=== PATIENT | male | born 1950 | race Caucasian/White ===

== ENCOUNTER 2016-08-17 16:58 | Inpatient (IN) ==
[2016-08-17] MEDS ORDERED: Ondansetron 4 MG/2 ML VIAL IVP ONE (17:22)
[2016-08-17] MEDS ORDERED: *HR* Morphine 2 MG/ML SYRINGE IVP ONE (17:22)
[2016-08-17] MEDS ORDERED: 0.9 % Sodium Chloride 1,000 ML IVC ONE (17:23)
--- NOTE | 2016-08-17 17:26 | Emergency Department Note ---
Disposition Clinical Impression: Pneumonia Qualifiers: Pneumonia type: due to unspecified organism Laterality: left Lung location: lower lobe of lung Qualified Code(s): J18.1 - Lobar pneumonia, unspecified organism Disposition: Admitted As Inpatient Condition: Good Referrals: Dolores Laureano MD [Primary Care Provider] - Forms: Work/School Release, ED Satisfaction Letter Time of Disposition: 20:08 Abdominal Pain HPI - General Chief Complaint: ED Abdominal Pain Stated Complaint: abdominal pain sent from for CT scan Time Seen by Provider: 08/17/16 17:20 Source: patient, other Mode of arrival: ambulatory Limitations: altered mental status (Developmentally delayed) Nursing Notes Reviewed: Yes Vital Signs Reviewed: Yes - History of Present Illness Pt Subjective Complaint: abdominal pain Onset (ago): day(s) (1) Consistency: constant Location: periumbilical Pain Severity: severe Pain Scale: 8 Quality: cramping Radiation: none Migration to: no migration Improves with: nothing Worsens with: nothing Associated symptoms: Reports: nausea, vomiting (Multiple episodes of vomiting) Treatments prior to arrival: none - Related Data Home Medications Medication Instructions Recorded Confirmed Aspirin [Lo-Dose Aspirin EC] 81 mg PO DAILY 08/17/16 08/17/16 Bismuth Subsalicylate 262 mg PO AD 08/17/16 08/17/16 [Pepto-Bismol] Buspirone HCl [Buspar] 15 mg PO TID 08/17/16 08/17/16 Calcium Carbonate/Vitamin D3 1 each PO DAILY 08/17/16 08/17/16 [Oyster Shell Calcium-Vit D Tab] CarBAMazepine [Tegretol] 200 mg PO TID 08/17/16 08/17/16 Diazepam [Valium] 5 mg PO ONCE 08/17/16 08/17/16 Docusate Sodium [Stool Softener] 250 mg PO HS 08/17/16 08/17/16 Finasteride [Proscar] 5 mg PO DAILY 08/17/16 08/17/16 Lisinopril [Zestril] 10 mg PO DAILY 08/17/16 08/17/16 Niacin [Niacor] 500 mg PO BID 08/17/16 08/17/16 Omeprazole 20 mg PO DAILY 08/17/16 08/17/16 Tamsulosin HCl [Flomax] 0.4 mg PO DAILY 08/17/16 08/17/16 Allergies Allergy/AdvReac Type Severity Reaction Status Date / Time No Known Allergies Allergy Verified 08/17/16 15:55 All systems ED: reviewed and negative except as stated. Constitutional: Reports: fever, chills Eyes: Denies: eye discharge ENT ED: Denies: ear pain, throat pain Cardiovascular: Denies: chest pain Respiratory: Denies: cough, dyspnea Gastrointestinal: Reports: abdominal pain, nausea, vomiting. Denies: diarrhea Genitourinary: Denies: urgency, dysuria, frequency Abdominal Pain PMH - Past Medical History Medical history: Reports: non-contributory Male Surgical History: Reports: no surgical history - Social History Smoking status: Never smoker Alcohol use: Reports: none Drug use: Reports: none Physical Exam - General Limitations: other (Developmentally delayed) General appearance: alert, in no apparent distress - Head Head exam: atraumatic, normocephalic - Eye Eye exam: Present: PERRL, EOMI. Absent: scleral icterus, conjunctival injection - ENT ENT exam: normal oropharynx, mucous membranes dry, TM's normal bilaterally - Neck Neck exam: Present: normal inspection, full ROM, trachea midline. Absent: lymphadenopathy - Chest Chest inspection: Present: normal inspection, symmetric chest wall rise - Respiratory Respiratory exam: Present: normal lung sounds bilaterally. Absent: respiratory distress, wheezes - Cardiovascular Cardiovascular exam: Present: tachycardia, normal heart sounds. Absent: systolic murmur, diastolic murmur, rubs, gallop - Abdominal Exam Abdominal exam: Present: soft, tenderness, distention, guarding (Mild), hyperactive bowel sounds. Absent: rebound, organomegaly, mass Abdominal tenderness: Present: diffuse - Male exam: Present: normal testicular lie. Absent: inguinal hernia, inguinal lymphadenopathy, testicular tenderness - Extremities Exam Extremities exam: Present: normal inspection, full ROM, normal capillary refill. Absent: tenderness - Neurological Exam Neurological exam: Present: alert, normal gait. Absent: motor sensory deficit - Psychiatric Psychiatric exam: Present: normal affect, normal mood - Skin Skin exam: Present: warm, dry, intact Course - Reevaluation(s) Reevaluation #1: The patient presents with vomiting. He does not have a definite bowel obstruction. He is an infiltrate in his left lower lobe with elevated white blood cell count. I suspect he has pneumonia. We will cover him for a community-acquired pneumonia with Rocephin and azithromycin. He has had no vomiting in the 3 hours at least been here. I spoke with Dr. Gonzalez. He is agreeable with admitting the patient to a Medr bed on IV fluids and clear liquids. Time: 20:07 Vital Signs Temperature 99.8 F H 08/17/16 17:06 Pulse Rate 102 08/17/16 17:06 Respiratory Rate 14 08/17/16 17:06 Blood Pressure 132/83 08/17/16 17:06 O2 Sat by Pulse Oximetry 97 08/17/16 17:06 Temperature 99.8 F H 08/17/16 18:59 Pulse Rate 80 08/17/16 18:59 Respiratory Rate 16 08/17/16 18:59 Blood Pressure 135/79 08/17/16 18:59 O2 Sat by Pulse Oximetry 96 08/17/16 18:59 Oxygen Delivery Oxygen Delivery Room Air Abdominal Pain - MDM Narrative Medical decision making narrative: Differential includes but is not limited to diverticulitis, perforated viscus, small bowel obstruction, appendicitis, perforated appendicitis, urinary tract infection. - Lab Data Result diagrams: 08/17/16 17:30 08/17/16 17:30 Lab Results 08/17/16 08/17/16 08/17/16 Range/Units 17:30 17:30 17:30 WBC 15.8 H (4.3-11.1) K/mcL RBC 5.48 (4.19-5.50) M/mcL Hgb 17.2 H (12.9-16.9) g/dL Hct 47.7 (37.5-50.1) % MCV 87.0 (83.0-100.0) fL MCH 31.4 (28.0-33.3) pg MCHC 36.1 H (31.6-35.5) g/dL RDW 14.2 (11.5-14.5) % Plt Count 172 (140-400) K/mcL MPV 9.4 (9.4-12.4) fL Immature Gran % 0.4 (0-4) % Seg Neutrophils % 90.1 % Lymphocytes % 3.9 % Monocytes % 5.4 % Eosinophils % 0.0 % Basophils % 0.2 % Neutrophils # 14.2 H (1.6-8.9) K/mcL Lymphocytes # 0.6 (0.6-4.6) K/mcL Monocytes # 0.9 (0.0-1.3) K/mcL Eosinophils # 0.0 (0.0-0.6) K/mcL Basophils # 0.0 (0.0-0.2) K/mcL Sodium 139 (136-145) mEq/L Potassium 3.7 (3.5-4.5) mEq/L Chloride 104 (98-109) mEq/L Carbon Dioxide 21 (19-29) mEq/L BUN 21 (8-26) mg/dL Creatinine 1.01 (0.72-1.25) mg/dL Est GFR ( Amer) > 60 (> 60) Est GFR (Non-Af Amer) > 60 (> 60) BUN/Creatinine Ratio 21 (6-26) Glucose 132 H (70-99) mg/dL Calculated Osmolality 293 (280-300) Calcium 8.9 (8.6-10.8) mg/dL Total Bilirubin 0.4 (0.2-1.2) mg/dL AST 20 (5-34) Units/L ALT 20 (0-55) Units/L Alkaline Phosphatase 64 (38-126) Units/L Serum Total Protein 7.6 (6.0-8.3) g/dL Albumin 4.4 (3.5-5.0) g/dL Globulin 3.2 (2.4-3.5) g/dL Albumin/Globulin Ratio 1.4 (1.1-2.2) Lipase 10 (8-78) Units/L Urine Color (Yellow) Urine Clarity (Clear) Urine pH (5.0-8.0) pH Units Ur Specific [place] (1.010-1.025) Urine Protein (Neg-Trace) mg/dL Urine Glucose (UA) (Normal) mg/dL Urine Ketones (Negative) mg/dL Urine Blood (Negative) Urine Nitrite (Negative) Urine Bilirubin (Negative) Urine Urobilinogen (Normal) mg/dL Ur Leukocyte Esterase (Negative) Urine Microscopic RBC (0-3) per hpf Urine Microscopic WBC (0-3) per hpf Ur Squamous Epith Cells (None-Few) per lpf Hyaline Casts (None-Few) per lpf Urine Mucus (Few) Ur Culture Indicated? (NO) Carbamazepine 5.0 (4.0-12.0) mcg/mL 08/17/16 Range/Units 17:38 WBC (4.3-11.1) K/mcL RBC (4.19-5.50) M/mcL Hgb (12.9-16.9) g/dL Hct (37.5-50.1) % MCV (83.0-100.0) fL MCH (28.0-33.3) pg MCHC (31.6-35.5) g/dL RDW (11.5-14.5) % Plt Count (140-400) K/mcL MPV (9.4-12.4) fL Immature Gran % (0-4) % Seg Neutrophils % % Lymphocytes % % Monocytes % % Eosinophils % % Basophils % % Neutrophils # (1.6-8.9) K/mcL Lymphocytes # (0.6-4.6) K/mcL Monocytes # (0.0-1.3) K/mcL Eosinophils # (0.0-0.6) K/mcL Basophils # (0.0-0.2) K/mcL Sodium (136-145) mEq/L Potassium (3.5-4.5) mEq/L Chloride (98-109) mEq/L Carbon Dioxide (19-29) mEq/L BUN (8-26) mg/dL Creatinine (0.72-1.25) mg/dL Est GFR ( Amer) (> 60) Est GFR (Non-Af Amer) (> 60) BUN/Creatinine Ratio (6-26) Glucose (70-99) mg/dL Calculated Osmolality (280-300) Calcium (8.6-10.8) mg/dL Total Bilirubin (0.2-1.2) mg/dL AST (5-34) Units/L ALT (0-55) Units/L Alkaline Phosphatase (38-126) Units/L Serum Total Protein (6.0-8.3) g/dL Albumin (3.5-5.0) g/dL Globulin (2.4-3.5) g/dL Albumin/Globulin Ratio (1.1-2.2) Lipase (8-78) Units/L Urine Color Yellow (Yellow) Urine Clarity Slightly Cloudy A (Clear) Urine pH 6.0 (5.0-8.0) pH Units Ur Specific [place] >= 1.030 H (1.010-1.025) Urine Protein >=300 H (Neg-Trace) mg/dL Urine Glucose (UA) Normal (Normal) mg/dL Urine Ketones Trace H (Negative) mg/dL Urine Blood Trace-intact H (Negative) Urine Nitrite Negative (Negative) Urine Bilirubin Small H (Negative) Urine Urobilinogen Normal (Normal) mg/dL Ur Leukocyte Esterase Negative (Negative) Urine Microscopic RBC 0-3 (0-3) per hpf Urine Microscopic WBC 0-3 (0-3) per hpf Ur Squamous Epith Cells Few (None-Few) per lpf Hyaline Casts Few (None-Few) per lpf Urine Mucus Many H (Few) Ur Culture Indicated? NO (NO) Carbamazepine (4.0-12.0) mcg/mL
[2016-08-17] MEDS ORDERED: 0.9 % Sodium Chloride 1,000 ML IVC SCH ×3 (17:30→22:42)
[2016-08-17 17:41] LABS: Basophils % 0.2 %; Hematocrit 47.7 % (37.5-50.1); Hemoglobin 17.2 g/dL (12.9-16.9); Immature Granulocytes % 0.4 % (0-4); Lymphocytes # 0.6 K/mcL (0.6-4.6); Lymphocytes % 3.9 %; Mean Corpuscular HGB Conc 36.1 g/dL (31.6-35.5); Mean Corpuscular Hemoglobin 31.4 pg (28.0-33.3); Mean Platelet Volume 9.4 fL (9.4-12.4); Monocytes # 0.9 K/mcL (0.0-1.3); Monocytes % 5.4 %; Neutrophils # 14.2 K/mcL (1.6-8.9); Platelet Count 172 K/mcL (140-400); Red Blood Count 5.48 M/mcL (4.19-5.50); Red Cell Distribution Width 14.2 % (11.5-14.5); Segmented Neutrophils % 90.1 %
[2016-08-17 17:57] LABS: Bilirubin,Urine Small (Negative); Blood,Urine Trace-intact (Negative); Clarity,Urine Slightly Cloudy (Clear); Color,Urine Yellow (Yellow); Glucose,Urine (UA) Normal (Normal); Ketones,Urine Trace mg/dL (Negative); Leukocyte Esterase,Urine Negative (Negative); Nitrite,Urine Negative (Negative); Protein,Urine >=300 mg/dL (Neg-Trace); Specific Gravity,Urine >= 1.030 (1.010-1.025); Urobilinogen,Urine Normal (Normal)
[2016-08-17 18:00] LABS: Alanine Aminotransferase 20 Units/L (0-55); Albumin 4.4 g/dL (3.5-5.0); Albumin/Globulin Ratio 1.4 (1.1-2.2); Alkaline Phosphatase 64 Units/L (38-126); Aspartate Amino Transferase 20 Units/L (5-34); BUN/Creatinine Ratio 21 (6-26); Bilirubin,Total 0.4 mg/dL (0.2-1.2); Blood Urea Nitrogen 21 mg/dL (8-26); Calcium 8.9 mg/dL (8.6-10.8); Carbon Dioxide 21 mEq/L (19-29); Chloride 104 mEq/L (98-109); Globulin 3.2 g/dL (2.4-3.5); Glucose 132 mg/dL (70-99); Lipase 10 Units/L (8-78); Osmolality,Calculated 293 (280-300); Potassium 3.7 mEq/L (3.5-4.5); Sodium 139 mEq/L (136-145); Total Protein 7.6 g/dL (6.0-8.3); eGFR For African Americans > 60 (> 60); eGFR For Non-African Americans > 60 (> 60)
[2016-08-17 18:21] LABS: Mucus,Urine Many (Few); RBC,Urine 0-3 per hpf (0-3); Squamous Epithelial Cell,Urine Few per lpf (None-Few); WBC,Urine 0-3 per hpf (0-3)
[2016-08-17 18:22] LABS: Hyaline Casts,Urine Few per lpf (None-Few)
[2016-08-17] MEDS ORDERED: Azithromycin 500 MG in D5% in Water 250 ML IVPB ONE ×2 (21:04→22:42)
[2016-08-17] MEDS ORDERED: CefTRIAXone 1,000 MG in D5% in Water (Mini-Bag+) 100 ML IVPB ONE (21:04)
[2016-08-17] MEDS ORDERED: Naloxone 0.4 MG/ML INJ IVP PRN ×3 (22:42)
[2016-08-17] MEDS ORDERED: Ondansetron 4 MG/2 ML VIAL IVP PRN ×2 (22:42)
[2016-08-17] MEDS: Niacin (24 HR) 500 MG TAB.ER.24H PO SCH (23:37)
[2016-08-17] MEDS: CarBAMazepine 200 MG TABLET PO SCH (23:37)
[2016-08-17] MEDS: Docusate Oral Soln 100 MG/10 ML UDC PO SCH (23:38)
[2016-08-17] MEDS: Bismuth Subsalicylate 120 ML ORAL SUSPENSION PO SCH (23:38)
[2016-08-17] MEDS: 0.9 % Sodium Chloride 1,000 ML IVC SCH (23:39)
[2016-08-17] MEDS: Azithromycin 500 MG in D5% in Water 250 ML IVPB SCH (23:40)
[2016-08-18] MEDS: CefTRIAXone 1,000 MG in D5% in Water (Mini-Bag+) 100 ML IVPB SCH ×2 (00:25→22:06)
[2016-08-18] MEDS: 0.9 % Sodium Chloride 1,000 ML IVC SCH (07:30)
[2016-08-18] MEDS ORDERED: Aspirin Enteric Coated 81 MG Tablet PO SCH (09:00)
[2016-08-18] MEDS: Finasteride 5 MG TABLET PO SCH (11:20)
[2016-08-18] MEDS: CarBAMazepine 200 MG TABLET PO SCH ×3 (11:21→20:53)
--- NOTE | 2016-08-18 12:13 | Internal Med History&Physical ---
Date of Encounter: 08/18/16 Time of Encounter: 11:35 Assessment and Plan (1) Pneumonia Current visit: Yes Status: Acute He has been started on Rocephin and Zithromax. I will add lactobacillus. Repeat labs will be ordered in a.m. Qualifiers: Pneumonia type: due to unspecified organism Laterality: left Lung location: lower lobe of lung Qualified Code(s): J18.1 - Lobar pneumonia, unspecified organism (2) Abdominal pain Current visit: No Status: Acute Now resolved. The etiology may be acute gastroenteritis. Diet will been reintroduced as tolerated. IV fluids be continued for now. Qualifiers: Abdominal location: generalized Qualified Code(s): R10.84 - Generalized abdominal pain Internal Medicine - H&P: HPI Chief complaint: Vomiting Admitted From: Home Plans for Post Hospital Care: Home History of present illness: Mr. Villagomez is a 65 year old male who was sent to emergency room from the [facility] after he had episodes of vomiting. He reports there were 2 episodes of vomiting but no hematemesis. His evaluation in emergency room included abdominal/pelvis CT scan which showed air-fluid levels consistent with enterocolitis. There was also evidence of left lower lobe pneumonia on CT. Was admitted to [facility] floor for ongoing care needs. He is a fair to poor historian. He has MRDD and unspecified psychiatric disorders. He states he has had cholecystectomy but denies disorders of his liver or exocrine pancreas. He states he had abdominal pain yesterday but it has resolved. Past Med Surg Social Fam HX - Past Medical History Medical history: non-contributory - Past Surgical History Surgical History: no surgical history - Social History Smoking Status: Never smoker Smokeless Tobacco Status: No Alcohol use: none Drug use: none Internal Medicine - H&P: Meds Aspirin [Lo-Dose Aspirin EC] 81 mg PO DAILY 08/17/16 [History] Bismuth Subsalicylate [Pepto-Bismol] 262 mg PO AD 08/17/16 [History] Buspirone HCl [Buspar] 15 mg PO TID 08/17/16 [History] Calcium Carbonate/Vitamin D3 [Oyster Shell Calcium-Vit D Tab] 1 each PO DAILY [History] CarBAMazepine [Tegretol] 200 mg PO TID 08/17/16 [History] Diazepam [Valium] 5 mg PO ONCE 08/17/16 [History] Docusate Sodium [Stool Softener] 250 mg PO HS 08/17/16 [History] Finasteride [Proscar] 5 mg PO DAILY 08/17/16 [History] Lisinopril [Zestril] 10 mg PO DAILY 08/17/16 [History] Niacin [Niacor] 500 mg PO BID 08/17/16 [History] Omeprazole 20 mg PO DAILY 08/17/16 [History] Tamsulosin HCl [Flomax] 0.4 mg PO DAILY 08/17/16 [History] Simvastatin [Zocor] 20 mg PO HS 08/18/16 [History] Allergies No Known Allergies Allergy (Verified 08/17/16 15:55) All Systems PM: A 10-system review of systems was performed and is negative for pertinent findings except as documented above in the HPI. Review of systems: Gen.: He states his weight has been stable past months Cardiovascular: He has a history of hypertension denies SD heart failure angina DVT or pulmonary embolus Respiratory: He states he has been a lifelong nonsmoker and denies chronic lung disease GI: As per history of present illness : He has presumed BPH since he is on Flomax. He denies other kidney bladder prostate disorders Neurologic: He denies large distribution strokes or seizures Endocrine: He denies diabetes thyroid disease or hyperlipidemia Hematology/oncology: He denies blood disorders cancers or anemia Psychiatric: He does not know specific diagnosis but takes BuSpar, Tegretol, and Valium. [place] skeletal: He denies arthritis gout or other bone joint or muscle disorders. - Constitutional Vitals: Temp Pulse Resp BP Pulse Ox 97.7 F 65 20 121/76 97 08/18/16 11:17 08/18/16 11:17 08/18/16 11:17 08/18/16 11:17 08/18/16 11:17 Exam: General: He is a well-developed well-nourished male sitting in a chair who appears anxious HEENT: Head is atraumatic and normocephalic. Eyes: EOMI. There is no scleral icterus. Mouth: Mucosa is moist. Neck: Supple and nontender. There is no thyromegaly or adenopathy noted. Heart: Regular without murmurs gallops or ectopics Lungs: No wheezes or crackles are heard. Abdomen: Soft and nontender. No masses or guarding are noted. Bowel sounds are diminished. Exam is limited because he is in the seated position. Extremities: There is no cyanosis edema or clubbing noted. Dorsalis pedis and posttibial pulses are trace palpable bilaterally. His feet are warm to touch Neurologic: Mental status: He is talkative and a fair to poor historian. Cranial nerves: Smile is symmetric. Forehead wrinkles bilaterally. Tongue protrudes midline. EOMI. Motor: There is no pronator drift. Cerebellar: Finger to nose is intact bilaterally. Skin: Warm and dry Internal Med - H&P Results - Labs CBC & Chem 7: 08/17/16 17:30 08/17/16 17:30
[2016-08-18] MEDS: *HR* Enoxaparin 40 MG/0.4 ML SYRINGE SQ SCH (13:27)
[2016-08-18] MEDS: Lactobacillus 1 EACH CAP.SPRINK PO SCH ×2 (13:28→20:53)
[2016-08-18] MEDS: 0.45 % Sodium Chloride w/KCl 20 MEQ/1,000 ML MLS IVC SCH (13:29)
[2016-08-18] MEDS: Docusate Oral Soln 100 MG/10 ML UDC PO SCH (20:54)
[2016-08-18] MEDS: Bismuth Subsalicylate 120 ML ORAL SUSPENSION PO SCH (22:06)
[2016-08-18] MEDS: Niacin (24 HR) 500 MG TAB.ER.24H PO SCH (22:06)
[2016-08-18] MEDS: Azithromycin 500 MG in D5% in Water 250 ML IVPB SCH (22:53)
[2016-08-19] MEDS: 0.45 % Sodium Chloride w/KCl 20 MEQ/1,000 ML MLS IVC SCH (03:58)
[2016-08-19 05:24] LABS: Basophils % 0.4 %; Eosinophils # 0.1 K/mcL (0.0-0.6); Eosinophils % 1.6 %; Hematocrit 39.2 % (37.5-50.1); Hemoglobin 13.8 g/dL (12.9-16.9); Immature Granulocytes % 0.2 % (0-4); Lymphocytes # 1.8 K/mcL (0.6-4.6); Lymphocytes % 33.2 %; Mean Corpuscular HGB Conc 35.2 g/dL (31.6-35.5); Mean Corpuscular Hemoglobin 31.2 pg (28.0-33.3); Mean Corpuscular Volume 88.5 fL (83.0-100.0); Mean Platelet Volume 9.6 fL (9.4-12.4); Monocytes # 0.6 K/mcL (0.0-1.3); Platelet Count 121 K/mcL (140-400); Red Blood Count 4.43 M/mcL (4.19-5.50); Red Cell Distribution Width 14.7 % (11.5-14.5); Segmented Neutrophils % 54.6 %
[2016-08-19 05:42] LABS: BUN/Creatinine Ratio 10 (6-26); Blood Urea Nitrogen 8 mg/dL (8-26); Calcium 7.8 mg/dL (8.6-10.8); Carbon Dioxide 21 mEq/L (19-29); Chloride 109 mEq/L (98-109); Glucose 92 mg/dL (70-99); Osmolality,Calculated 286 (280-300); Potassium 3.8 mEq/L (3.5-4.5); Sodium 139 mEq/L (136-145); eGFR For African Americans > 60 (> 60); eGFR For Non-African Americans > 60 (> 60)
[2016-08-19] MEDS: *HR* Enoxaparin 40 MG/0.4 ML SYRINGE SQ SCH (06:24)
[2016-08-19 06:59] VITALS: BP 115/69
[2016-08-19] MEDS ORDERED: Niacin (24 HR) 500 MG TAB.ER.24H PO SCH (09:00)
[2016-08-19] MEDS: Lactobacillus 1 EACH CAP.SPRINK PO SCH (09:17)
[2016-08-19] MEDS: Finasteride 5 MG TABLET PO SCH (09:17)
[2016-08-19] MEDS: CarBAMazepine 200 MG TABLET PO SCH (09:17)
--- NOTE | 2016-08-19 10:14 | Discharge Summary ---
Date of Encounter: 08/19/16 Time of Encounter: 10:00 - Discharge Diagnosis (1) Pneumonia Priority: Primary Status: Acute Qualifiers: Pneumonia type: due to unspecified organism Laterality: left Lung location: lower lobe of lung Qualified Code(s): J18.1 - Lobar pneumonia, unspecified organism (2) Abdominal pain Priority: Secondary Status: Resolved Qualifiers: Abdominal location: generalized Qualified Code(s): R10.84 - Generalized abdominal pain - Discharge Medications Prescriptions: Cefuroxime PO [Ceftin] 500 mg PO Q12HR #6 tablet Azithromycin [Zithromax] 250 mg PO DAILY #3 tablet Lactobacillus [Culturelle] 1 each PO BID #6 [email or web address] Home Medications: Aspirin [Lo-Dose Aspirin EC] 81 mg PO DAILY 08/17/16 [History] Bismuth Subsalicylate [Pepto-Bismol] 262 mg PO AD 08/17/16 [History] Buspirone HCl [Buspar] 15 mg PO TID 08/17/16 [History] Calcium Carbonate/Vitamin D3 [Oyster Shell Calcium-Vit D Tab] 1 each PO DAILY [History] CarBAMazepine [Tegretol] 200 mg PO TID 08/17/16 [History] Diazepam [Valium] 5 mg PO ONCE 08/17/16 [History] Docusate Sodium [Stool Softener] 200 mg PO HS 08/17/16 [History] Finasteride [Proscar] 5 mg PO DAILY 08/17/16 [History] Lisinopril [Zestril] 10 mg PO DAILY 08/17/16 [History] Niacin [Niacor] 500 mg PO BID 08/17/16 [History] Omeprazole 20 mg PO DAILY 08/17/16 [History] Tamsulosin HCl [Flomax] 0.4 mg PO DAILY 08/17/16 [History] Simvastatin [Zocor] 20 mg PO HS 08/18/16 [History] Azithromycin [Zithromax] 250 mg PO DAILY #3 tablet 08/19/16 [Rx] Cefuroxime PO [Ceftin] 500 mg PO Q12HR #6 tablet 08/19/16 [Rx] Lactobacillus [Culturelle] 1 each PO BID #6 cap.sprink 08/19/16 [Rx] Allergies/Adverse Reactions: Allergies No Known Allergies Allergy (Verified 08/17/16 15:55) Date of admission: 08/18/16 12:39 Primary care physician: Dolores Laureano - Patient Status Disposition: Home, Self-Care Condition: Good Overall status at discharge: patient is progressing back to baseline - Discharge Instructions Follow Up With: Dolores Laureano MD [Primary Care Provider] - 1 week - Diet and Activity Activity: resume usual activities as tolerated Diet: advance to your usual diet Hospital course: Mr. Villagomez is a 65 year old male who was sent to emergency room from the [facility] after he had episodes of vomiting. He reports there were 2 episodes of vomiting but no hematemesis. His evaluation in emergency room included abdominal/pelvis CT scan which showed air-fluid levels consistent with enterocolitis. There was also evidence of left lower lobe pneumonia on CT. Was admitted to [facility] for ongoing care needs. Initial orders were written by the emergency room physician. I saw him on August 18 and performed the history and physical. He was started on IV Rocephin and Zithromax. I added lactobacillus. WBC normalized by the following day to 5.5K with 54.6% segs. He had no further vomiting or dyspnea. When I saw him on August 19 he felt stable for discharge back to the [facility] which I felt was reasonable. He will continue with antibiotic and probiotic 3 additional days after discharge. He will follow with his PCP Dr. Laureano at the [facility]. - Time Spent with Patient Total time spent providing and/or coordinating discharge services: - Constitutional Vitals: Temp Pulse Resp BP Pulse Ox 97.7 F 60 16 115/69 96 08/19/16 06:47 08/19/16 06:47 08/19/16 06:47 08/19/16 06:47 08/19/16 06:47
[2016-08-19] MEDS ORDERED: CefTRIAXone 1,000 MG in D5% in Water (Mini-Bag+) 100 ML IVPB SCH (22:00)
[2016-08-19] MEDS ORDERED: Azithromycin 500 MG in D5% in Water 250 ML IVPB SCH (23:00)
== END 2016-08-19 10:48 | disposition home or self-care (01) ==
LOC: EMEROOPIK 16:58 → INPPIK 16:58
PROVIDERS: ADMIT Internal Medicine; ATTEND Internal Medicine